=== PATIENT | male | born 1985 | race Caucasian/White ===

== ENCOUNTER 2016-09-25 23:14 | Emergency (ER) | payer MEDICAID | END 2016-09-26 00:49 | disposition home or self-care (01) | LOC: ER 23:14 | DX: B17.9 Acute viral hepatitis, unspecified (principal); E11.22 Type 2 diabetes mellitus with diabetic chronic kidney disease; I12.9 Hypertensive chronic kidney disease with stage 1 through stage 4 chronic kidney disease, or unspecified chronic kidney disease; N18.9 Chronic kidney disease, unspecified; Z79.4 Long term (current) use of insulin; Z79.899 Other long term (current) drug therapy; M10.9 Gout, unspecified | CPT/HCPCS: 36415; 80053; 81001; 82140; 82947; 83735; 85025; 87088 ==